=== PATIENT | female | born 1950 | race American Indian/Alaskan Native ===

== ENCOUNTER 2018-11-16 11:01 | Outpatient (CLI) | payer MEDICARE ==
--- NOTE | 2018-11-16 12:01 | XRay Report ---
LEFT SHOULDER RADIOGRAPHS INDICATION: Pain of left shoulder region. COMPARISON: None similar. FINDINGS: Frontal and Y views of the left shoulder, 3 projections demonstrate normal humeral head contour, well positioned against the glenoid. Intact acromioclavicular joint. Mild hypertrophic spurring may be noted about the greater tuberosity and slightly at the AC joint and the inferior glenoid. Preserved scapular contour. Normal visualized soft tissues, left ribs and lung. Cardiomegaly not excluded. CONCLUSION: No acute left shoulder radiographic abnormality with few incidental findings, as described. Thank you for the opportunity to participate in this patient's care.
--- NOTE | 2018-11-16 13:16 | Magnetic Resonance Report ---
MRI scan left shoulder: History: Left shoulder pain. Technique: Multiple, multisequence images were obtained without contrast injection. Findings: No evidence of os acromion. Moderate arthritic changes are noted at the a.c. joint with swelling of the capsule. Minimal impingement of the supraspinatus at the a.c. joint at the musculotendinous junction. Calcific tendinitis with partial thickness tear is noted of posterior fibers supraspinatus near the insertion of the greater tuberosity. Bicipital tendon, infraspinatus and the subscapularis appears unremarkable. No evidence of joint effusion. The glenohumeral joint and the labrum grossly appears normal. No abnormal signal intensity of the bones. 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 Calcific tendinitis with partial thickness tear of supraspinatus as detailed above. The
== END 2018-11-16 11:02 | disposition home or self-care (01) ==
LOC: SPVIMAG 11:01
PROVIDERS: ATTEND Internal Medicine
DX: M19.012 Primary osteoarthritis, left shoulder (principal); M75.32 Calcific tendinitis of left shoulder; M75.112 Incomplete rotator cuff tear or rupture of left shoulder, not specified as traumatic; Z72.89 Other problems related to lifestyle

== ENCOUNTER 2019-10-31 08:05 | Outpatient (CLI) | payer MEDICARE | END 2019-10-31 08:06 | disposition home or self-care (01) | LOC: SPVWC 08:05 | DX: E88.09 Other disorders of plasma-protein metabolism, not elsewhere classified (principal); R74.8 Abnormal levels of other serum enzymes ==